=== PATIENT | female | born 1985 | race Caucasian/White ===

== ENCOUNTER 2017-01-06 18:42 | Emergency (ER) | payer OTHER ==
[2017-01-06 18:49] VITALS: TEMP 98.1; BMI 28.3
--- NOTE | 2017-01-06 19:43 | PDOC ---
History of Present Illness - History of Present Illness Initial Comments: 01/06/17 20:05 Patient is a 31 year old female with significant medical hx of vertigo who is presenting to the ED with several days of neck pain that worsened today. Patient reports having mild neck pain two days ago that worsened today after throwing her head back while laughing. The patient complains of pain that is localized to the left side of her neck that worsens when she turns her head to the left. Patient also complains of a week and a half of insomnia and multiple episodes of loose stooling. She endorses some lightheadedness as well. Denies any weakness, numbness, tingling, slurred speech, confusion, or any focal neurological deficits. Social Hx: Tobacco smoker for 13 years, currently one pack per day. Denies alcohol use or recreational drug use. /A1 <Alba Murillo - Last Filed: 01/06/17 20:15> <Abbie Diaz - Last Filed: 01/07/17 00:39> - General Chief Complaint: Pain, Acute Stated Complaint: WEAKNESS Time Seen by Provider: 01/06/17 18:59 Past History <Alba Murillo - Last Filed: 01/06/17 20:15> - Past Medical History Other medical history: none - Reproductive History (#): 2 Para: 1 Cervical CA: No Dysfunctional Uterine Bleeding: No Ectopic : No Endometrial CA: No Polycystic Ovaries: No Therapeutic (s) & number: Yes Tubal Ligation: No Spontaneous : 1 - Immunization History Immunization Up to Date: Yes - Psycho/Social/Smoking Cessation Hx Anxiety: Yes Suicidal Ideation: No Smoking History: Never smoked Have you smoked in the past 12 months: Yes Number of Cigarettes Smoked Daily: 20 Information on smoking cessation initiated: Yes 'Breaking Loose' booklet given: 01/06/17 Hx Alcohol Use: No Drug/Substance Use Hx: No <Abbie Diaz - Last Filed: 01/07/17 00:39> - Past Medical History Allergies/Adverse Reactions: Allergies Allergy/AdvReac Type Severity Reaction Status Date / Time No Known Allergies Allergy Verified 01/06/17 18:44 Home Medications: Ambulatory Orders Cyclobenzaprine HCl [Flexeril 10 mg] 10 mg PO HS PRN #7 tablet 01/06/17 Ibuprofen [Motrin -] 600 mg PO TID PRN #21 tablet 01/06/17 Review of Systems - Review of Systems Comments:: 01/06/17 20:15 CONSTITUTIONAL: Present: insomnia Absent: fever, chills, diaphoresis, generalized weakness, malaise, loss of appetite HEENT: Absent: rhinorrhea, nasal congestion, throat pain, throat swelling, difficulty swallowing, mouth swelling, ear pain, eye pain, visual changes CARDIOVASCULAR: Present: lightheadedness Absent: chest pain, syncope, palpitations, irregular heart rate, peripheral edema RESPIRATORY: Absent: cough, shortness of breath, dyspnea with exertion, orthopnea, wheezing, stridor, hemoptysis GASTROINTESTINAL: Present: loose stooling Absent: abdominal pain, abdominal distension, nausea, vomiting, constipation, melena, hematochezia GENITOURINARY: Absent: dysuria, frequency, urgency, hesitancy, hematuria, flank pain, genital pain MUSCULOSKELETAL: Present: Neck pain Absent: myalgia, arthralgia, joint swelling SKIN: Absent: rash, itching, pallor HEMATOLOGIC/IMMUNOLOGIC: Absent: easy bleeding, easy bruising, lymphadenopathy, frequent infections ENDOCRINE: Absent: unexplained weight gain, unexplained weight loss, heat intolerance, cold intolerance NEUROLOGIC: Absent: headache, focal weakness or paresthesia, dizziness, unsteady gait, seizure, mental status changes, bladder or bowel incontinence. PSYCHIATRIC: Absent: anxiety, depression, suicidal or homicidal ideation, hallucinations <Leticia Murilloa - Last Filed: 01/06/17 20:15> *Physical Exam - Vital Signs Last Vital Signs Temp Pulse Resp BP Pulse Ox 98.1 F 76 18 117/76 100 01/06/17 18:45 01/06/17 18:45 01/06/17 18:45 01/06/17 18:45 01/06/17 18:45 - Physical Exam Comments: 01/06/17 20:16 GENERAL: Well developed, well nourished. Awake and alert. No acute distress. HEENT: Normocephalic, atraumatic. PERRLA, EOMI. No conjunctival pallor. Sclera are non- icteric. Moist mucous membranes. Oropharynx is clear. NECK: Supple. Full ROM. No JVD. Carotid pulses 2+ and symmetric, without bruits. No thyromegaly. No lymphadenopathy. CARDIOVASCULAR: Regular rate and rhythm. No murmurs, rubs, or gallops. Distal pulses are 2+ and symmetric. PULMONARY: No evidence of respiratory distress. Lungs clear to auscultation bilaterally. No wheezing, rales or rhonchi. ABDOMINAL: Soft. Non-tender. Non-distended. No rebound or guarding. No organomegaly. Normoactive bowel sounds. MUSCULOSKELETAL: Left trapezius tenderness, left sided paraspinal tenderness. Normal range of motion at all joints. No bony deformities. No CVA tenderness. EXTREMITIES: No cyanosis. No clubbing. No edema. No calf tenderness. SKIN: Warm and dry. Normal capillary refill. No rashes. No jaundice. NEUROLOGICAL: Alert, awake, appropriate. Cranial nerves 2-12 intact. Normal speech. Gait is normal without ataxia. PSYCHIATRIC: Cooperative. Good eye contact. Appropriate mood and affect. <Alba Murillo - Last Filed: 01/06/17 20:15> - Vital Signs Last Vital Signs Temp Pulse Resp BP Pulse Ox 98.1 F 76 18 117/76 100 01/06/17 18:45 01/06/17 18:45 01/06/17 18:45 01/06/17 18:45 01/06/17 18:45 <Abbie Diaz - Last Filed: 01/07/17 00:39> ED Treatment Course - LABORATORY CBC & Chemistry Diagram: 01/06/17 20:00 01/06/17 20:00 <Alba Murillo - Last Filed: 01/06/17 20:15> - LABORATORY CBC & Chemistry Diagram: 01/06/17 20:00 01/06/17 20:00 <Abbie Diaz - Last Filed: 01/07/17 00:39> Medical Decision Making - Medical Decision Making 01/06/17 22:27 31 yo female p/w c/o left trapezius and paraspinal neck pain after throwing her head back while laughing.She also had miltiple c/o including insomnia,"bones cracking",1 week diarrhea. -no arm pain,no extremity tingling or numbness or weakness -negative test. -cbc,chemistries unremarkable -c spine was negative for fracture ,misalignment imp: musculoskeletal pain 01/07/17 00:36 <Abbie Diaz - Last Filed: 01/07/17 00:39> *DC/Admit/Observation/Transfer - Attestations Scribe Attestion: 01/06/17 20:17 Documentation prepared by Alba Murillo, acting as medical equipment repairer for Abbie Diaz MD. <Alba Murillo - Last Filed: 01/06/17 20:15> <Abbie Diaz - Last Filed: 01/07/17 00:39> Diagnosis at time of Disposition: Neck muscle spasm Trapezius muscle strain Qualifiers: Encounter type: initial encounter Laterality: left Qualified Code(s): S46.812A - Strain of other muscles, fascia and tendons at shoulder and upper arm level, left arm, initial encounter - Discharge Dispostion Disposition: HOME Condition at time of disposition: Stable - Prescriptions Prescriptions: Cyclobenzaprine HCl [Flexeril 10 mg] 10 mg PO HS PRN #7 tablet PRN Reason: Muscle Spasms Ibuprofen [Motrin -] 600 mg PO TID PRN #21 tablet PRN Reason: Pain - Patient Instructions Printed Discharge Instructions: DI for Cervical Muscle Strain, DI for Musculoskeletal Pain Additional Instructions: Please mill tender warm up your prescriptions at [facility] for any worsening symptoms
[2017-01-06] MEDS ORDERED: ACETAMINOPHEN 500 MG TABLET (FP) PO ONE (19:55)
[2017-01-06] MEDS ORDERED: ACETAMINOPHEN 325 MG TABLET (FP) ONE (20:01)
[2017-01-06 20:17] LABS: BASOPHIL 0.3 % (0-2.0); EOSINOPHIL 1.1 % (0-4.5); MCH 30.1 pg (25.7-33.7); MCHC 32.7 g/dl (32.0-36.0); MEAN CELL VOLUME 92.1 fl (80-96); MEAN PLT VOLUME 9.2 fl (7.5-11.1); NEUTROPHILS 75.9 % (42.8-82.8); PLATELET COUNT 203 K/MM3 (134-434); RDW 13.5 % (11.6-15.6); WHITE BLOOD COUNT 8.4 K/mm3 (4.0-10.0)
[2017-01-06 20:18] LABS: URINE APPEARANCE SLCLOUDY; URINE BILIRUBIN NEGATIVE (NEGATIVE); URINE BLOOD NEGATIVE (NEGATIVE); URINE COLOR LTYELLOW; URINE GLUCOSE (UA) NEGATIVE (NEGATIVE); URINE KETONE NEGATIVE (NEGATIVE); URINE LEUK ESTERASE NEGATIVE (NEGATIVE); URINE NITRITE NEGATIVE (NEGATIVE); URINE PROTEIN NEGATIVE (NEGATIVE); URINE UROBILINOGEN 2.0 E.U/dl E.U./dl (0.2-1.0)
[2017-01-06 20:36] LABS: ALK PHOS 68 U/L (45-117); ANION GAP 8 (8-16); BILIRUBIN,TOTAL 0.2 mg/dL (0.2-1.0); CALCIUM 8.5 mg/dL (8.5-10.1); CO2 26 mmol/L (21-32); CREATININE 0.7 mg/dL (0.55-1.02); GLUCOSE,RANDOM 76 mg/dL (74-106); SGPT/ALT 18 U/L (12-78); TOT PROT 6.8 g/dl (6.4-8.2)
[2017-01-06 20:37] LABS: SGOT/AST 21 U/L (15-37)
[2017-01-06] MEDS ORDERED: KETOROLAC TROMETHAMINE 60 MG/2 ML VIAL IM ONE (21:19)
[2017-01-06] MEDS ORDERED: IBUPROFEN 600 MG TABLET (FP) PO ONE (22:04)
[2017-01-06] MEDS ORDERED: CYCLOBENZAPRINE HCL 10 MG TABLET (FP) PO ONE (22:05)
[2017-01-06] MEDS ORDERED: METHOCARBAMOL 500 MG TABLET PO ONE (22:26)
[2017-01-06 22:39] VITALS: BP 122/68; PULSE 72
== END 2017-01-06 22:37 | disposition home or self-care (01) ==
LOC: JER 18:42
DX: S46.812A Strain of other muscles, fascia and tendons at shoulder and upper arm level, left arm, initial encounter (principal); M62.838 Other muscle spasm; X50.1XXA Overexertion from prolonged static or awkward postures, initial encounter; Y93.89 Activity, other specified; Y92.89 Other specified places as the place of occurrence of the external cause
CPT/HCPCS: 36415; 72050-TC; 80053; 81003; 84703; 85025; 99284-25

== ENCOUNTER 2017-04-18 02:24 | Emergency (ER) | payer OTHER ==
--- NOTE | 2017-04-18 04:18 | PDOC ---
Attending Attestation - HPI HPI: The patient is a 31 yo F with a past medical history of depression and anxiety who presents with dizziness and pressure in her head (non painful) that began around 1 pm s/p drinking large iced coffee. The patient states these symptoms are similar to her past episodes of anxiety. The patient also endorses mild SOB after walking up a hill. The patient denies fevers and chills. The patient denies chest pain and palpitations. The patient denies nausea, vomiting, diarrhea and abdominal pain. Social Hx: Smoker 1ppd - Medical Decision Making Documentation prepared by Lu Leahy, acting as adjunct faculty for medical terminology for Kevon Ybarra MD/DO. <Lu Leahy - Last Filed: 04/18/17 04:32> - Resident Resident Name: Larry Ornelas - ED Attending Attestation I have performed the following: I have examined & evaluated the patient, The case was reviewed & discussed with the resident, I agree w/resident's findings & plan, Exceptions are as noted - Physicial Exam PE: 04/18/17 05:22 Physical Exam General Appearance: Yes: Appropriately Dressed. No: Apparent Distress, Intoxicated HEENT: positive: EOMI, CROW, Normal ENT Inspection, Normal Voice, TMs Normal, Pharynx Normal. negative: Pale Conjunctivae, Photophobia, Scleral Icterus (R), Scleral Icterus (L) Neck: positive: Trachea midline, Normal Thyroid, Supple. negative: Tender, Rigid, Carotid bruit, Stridor, Lymphadenopathy (R), Lymphadenopathy (L), Thyromegaly Respiratory/Chest: positive: Lungs Clear, Normal Breath Sounds. negative: Chest Tender, Respiratory Distress, Accessory Muscle Use, Labored Respiration, RES, Crackles, Rales, Rhonchi, Stridor, Wheezing, Dullness Cardiovascular: positive: Regular Rhythm, Regular Rate, S1, S2. negative: Edema , JVD, Murmur, Bradycardia, Tachycardia Vascular Pulses: Dorsalis-Pedis (R): 2+, Doralis-Pedis (L): 2+ Gastrointestinal/Abdominal: positive: Normal Bowel Sounds, Flat, Soft. negative : Tender, Organomegaly, Pulsatile Mass, Increased Bowel Sounds, Decreased BS, Distended, Guarding, Rebound, Hernia, Hepatomegaly, Spleenomegaly Lymphatic: negative: Adenopathy, Tenderness Musculoskeletal: positive: Normal Inspection. negative: CVA Tenderness, Decreased Range of Motion Extremity: positive: Normal Capillary Refill, Normal Inspection, Normal Range of Motion, Pelvis Stable. negative: Tender, Pedal Edema, Swelling, Erythema Integumentary: positive: Normal Color, Dry, Warm. 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 negative: EOM Palsy, Facial Droop, Sensory Deficit <Kevon Ybarra - Last Filed: 04/18/17 05:25> Discharge Disposition <Lu Leahy - Last Filed: 04/18/17 04:32> - Discharge Dispostion Last Admission D/C Date: 08/27/10 Admit: No <Kevon Ybarra - Last Filed: 04/18/17 05:25> - Diagnosis Lightheaded - Discharge Dispostion Disposition: HOME Condition at time of disposition: Stable - Patient Instructions Printed Discharge Instructions: DI for Dizziness-Nonvertigo Additional Instructions: please follow up with your primary care from
[2017-04-18 04:29] LABS: BASOPHIL 0.4 % (0-2.0); EOSINOPHIL 0.8 % (0-4.5); MCH 30.7 pg (25.7-33.7); MCHC 32.9 g/dl (32.0-36.0); MEAN CELL VOLUME 93.2 fl (80-96); MEAN PLT VOLUME 9.2 fl (7.5-11.1); NEUTROPHILS 73.2 % (42.8-82.8); PLATELET COUNT 199 K/MM3 (134-434); RDW 13.7 % (11.6-15.6); URINE APPEARANCE CLOUDY; URINE BILIRUBIN NEGATIVE (NEGATIVE); URINE BLOOD NEGATIVE (NEGATIVE); URINE COLOR YELLOW; URINE GLUCOSE (UA) NEGATIVE (NEGATIVE); URINE KETONE NEGATIVE (NEGATIVE); URINE LEUK ESTERASE NEGATIVE (NEGATIVE); URINE NITRITE NEGATIVE (NEGATIVE); URINE PROTEIN NEGATIVE (NEGATIVE); URINE UROBILINOGEN NEGATIVE mg/dL (0.2-1.0); WHITE BLOOD COUNT 6.8 K/mm3 (4.0-10.0)
--- NOTE | 2017-04-18 04:39 | PDOC ---
History of Present Illness - General Chief Complaint: Lightheaded Stated Complaint: DIZZINESS Time Seen by Provider: 04/18/17 02:42 History Source: Patient Exam Limitations: No Limitations - History of Present Illness Initial Comments: 04/18/17 04:16 31F with likely psych history of depression/anxiety presenting with episodes of dizziness and pressure in her head (non-painful) as well as panting after going up a hill. Symptoms started at 1 pm after she drank a tall glass of iced coffee after her meal. Although she has been seen in this ed before for the same symptoms, today's symptoms are exceptional in their intensity. Patient reluctantly admits to 1 pack a day smoking of cigarettes but wishes she could stop if it wasn't for the disturbingly stressful living situation at home with her mother "and friends". The patient admits to a tumultuous psychiatric history, characterized as "father issues unresolved", where she developed a distrust of the psychiatric and psychological establishment. Patient refuses to consider psych referral or smoking cessation alcohol and drug counselor, instead relying on smoking to relieve her anxiety. Past History - Past Medical History Allergies/Adverse Reactions: Allergies Allergy/AdvReac Type Severity Reaction Status Date / Time No Known Allergies Allergy Verified 04/18/17 02:54 Home Medications: Ambulatory Orders Cyclobenzaprine HCl [Flexeril 10 mg] 10 mg PO HS PRN #7 tablet 01/06/17 Ibuprofen [Motrin -] 600 mg PO TID PRN #21 tablet 01/06/17 - Reproductive History (#): 2 Para: 1 Cervical CA: No Dysfunctional Uterine Bleeding: No Ectopic : No Endometrial CA: No Polycystic Ovaries: No Therapeutic (s) & number: Yes Tubal Ligation: No Spontaneous : 1 - Immunization History Immunization Up to Date: Yes - Psycho/Social/Smoking Cessation Hx Anxiety: Yes Suicidal Ideation: No Smoking History: Never smoked Have you smoked in the past 12 months: No Number of Cigarettes Smoked Daily: 20 Information on smoking cessation initiated: No 'Breaking Loose' booklet given: 01/06/17 Hx Alcohol Use: No Drug/Substance Use Hx: No Review of Systems - Review of Systems Constitutional: No: Chills, Diaphoresis, Fever HEENTM: No: Symptoms Reported Respiratory: Yes: SOB with Exertion Cardiac (ROS): No: Symptoms Reported ABD/GI: No: Symptoms Reported : No: Symptoms Reported Musculoskeletal: No: Symptoms Reported Integumentary: No: Symptoms Reported Neurological: No: Symptoms reported Psychiatric: Yes: Stressors, Sleep Pattern Change (Sleeps poorly especially last 4 days.) Endocrine: No: Excessive Sweating, Flushing, Intolerance to Cold, Intolerance to Heat *Physical Exam - Vital Signs Last Vital Signs Temp Pulse Resp BP Pulse Ox 98.7 F 73 12 123/64 99 04/18/17 02:54 04/18/17 02:54 04/18/17 02:54 04/18/17 02:54 04/18/17 02:54 - Physical Exam General Appearance: Yes: Nourished, Appropriately Dressed, Apparent Distress HEENT: positive: EOMI, CROW, Normal ENT Inspection Neck: positive: Trachea midline. negative: Tender Respiratory/Chest: positive: Lungs Clear, Normal Breath Sounds. negative: Chest Tender Musculoskeletal: positive: Normal Inspection. 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 CBC CMP UA, Upreg Utox: EKG:
[2017-04-18 04:48] LABS: ALBUMIN 3.8 g/dl (3.4-5.0); ANION GAP 4 (8-16); CALCIUM 8.5 mg/dL (8.5-10.1); CO2 29 mmol/L (21-32); CREATININE 0.7 mg/dL (0.55-1.02); GLUCOSE,RANDOM 98 mg/dL (74-106); SGOT/AST 8 U/L (15-37); SGPT/ALT 18 U/L (12-78)
[2017-04-18 04:50] LABS: ALK PHOS 59 U/L (45-117); BILIRUBIN,TOTAL 0.3 mg/dL (0.2-1.0); TOT PROT 6.5 g/dl (6.4-8.2); URINE MARIJUANA THC NEGATIVE ng/ml (CUTOFF=50)
[2017-04-18 04:51] VITALS: BP 123/64; PULSE 73; TEMP 98.7; BMI 29.3
== END 2017-04-18 05:36 | disposition home or self-care (01) ==
LOC: JER 02:24
DX: R42 Dizziness and giddiness (principal); F17.210 Nicotine dependence, cigarettes, uncomplicated; F41.8 Other specified anxiety disorders
CPT/HCPCS: 36415; 80053; 80307; 81003; 84703; 85025; 99281-25

== ENCOUNTER 2017-06-01 21:23 | Emergency (ER) | payer OTHER ==
[2017-06-01 21:28] VITALS: BP 110/58; PULSE 68; TEMP 98.1; BMI 27.4
[2017-06-01] MEDS ORDERED: morphine CARPU-JECT 4 MG/1 ML DISP.SYRIN IVPUSH ONE (22:12)
[2017-06-01] MEDS ORDERED: ONDANSETRON 4 MG/2 ML VIAL IVPUSH ONE (22:12)
[2017-06-01 22:13] LABS: URINE APPEARANCE CLOUDY; URINE BLOOD 3+ (NEGATIVE); URINE COLOR AMBER; URINE GLUCOSE (UA) NEGATIVE (NEGATIVE); URINE KETONE TRACE (NEGATIVE); URINE LEUK ESTERASE NEGATIVE (NEGATIVE); URINE NITRITE NEGATIVE (NEGATIVE); URINE UROBILINOGEN 4.0 E.U/dl mg/dL (0.2-1.0)
[2017-06-01 22:20] LABS: URINE PROTEIN 2+ (NEGATIVE)
[2017-06-01 22:23] LABS: URINE MUCUS MODERATE; URINE RBC 652 /hpf (0-3); URINE WBC 16 /hpf (3-5)
--- NOTE | 2017-06-01 22:23 | PDOC ---
History of Present Illness - General Chief Complaint: Injury Stated Complaint: PAIN Time Seen by Provider: 06/01/17 21:53 History Source: Patient Exam Limitations: No Limitations - History of Present Illness Initial Comments: 06/01/17 22:18 31yo Female patient with no significant past medical history presents to ED c/o left rib injury and pelvic pain s/p fall. Patient states she was changing light bulb while standing on 4 ft ladder, fell over and hit dining room table injuring her left ribs. She denies head injury, LOC, n/v/d, diff breathing, CP, Abd pain or any other complaints at this time. LNMP: Current. Patient reports 3 Doses of Tylenol 650mg OTC prior to arrival. Occurred: reports: this evening Severity: reports: moderate Pain Location: reports: other (Left ribs), pelvis Method of Injury: Yes: fall Modifying Factors: improves with: pain medication Loss of Consciousness: no loss of consciousness Associated Symptoms (Fall): trouble walking Past History - Travel Traveled outside of the country in the last 30 days: No Close contact w/someone who was outside of country & ill: No - Past Medical History Allergies/Adverse Reactions: Allergies Allergy/AdvReac Type Severity Reaction Status Date / Time No Known Allergies Allergy Verified 06/01/17 21:28 Home Medications: Ambulatory Orders Ibuprofen [Motrin -] 600 mg PO Q6H PRN #30 tablet 06/02/17 Methocarbamol [Robaxin -] 500 mg PO TID PRN #21 tablet 06/02/17 Other medical history: denies - Reproductive History (#): 2 Para: 1 Cervical CA: No Dysfunctional Uterine Bleeding: No Ectopic : No Endometrial CA: No Polycystic Ovaries: No Therapeutic (s) & number: Yes Tubal Ligation: No Spontaneous : 1 - Immunization History Immunization Up to Date: Yes - Suicide/Smoking/Psychosocial Hx Smoking History: Current every day smoker Have you smoked in the past 12 months: No Number of Cigarettes Smoked Daily: 20 Information on smoking cessation initiated: No 'Breaking Loose' booklet given: 01/06/17 Hx Alcohol Use: No Drug/Substance Use Hx: No Trauma Specific PMHX - Complaint Specific PMHX Arthritis: No Back Injury: No Neck Injury: No Hx Sacro Iliac Joint Dysfunction: No Review of Systems - Review of Systems Able to Perform ROS?: Yes Is the patient limited Greenlandic proficient: No Musculoskeletal: Yes: Muscle Pain, Other (Rib Pain) All Other Systems: Reviewed and Negative *Physical Exam - Vital Signs Last Vital Signs Temp Pulse Resp BP Pulse Ox 98.1 F 68 18 110/58 100 06/01/17 21:24 06/01/17 21:24 06/01/17 21:24 06/01/17 21:24 06/01/17 21:24 - Physical Exam General Appearance: Yes: Nourished, Appropriately Dressed, Apparent Distress, Moderate Distress. No: Mild Distress, Severe Distress Neck: positive: Trachea midline, Normal Thyroid, Supple. negative: Decreased range of motion, Lymphadenopathy (R), Lymphadenopathy (L) Respiratory/Chest: positive: Lungs Clear, Normal Breath Sounds. negative: Chest Tender, Respiratory Distress, Accessory Muscle Use, Labored Respiration, Rapid RR, Paradoxal Breathing, Stridor Cardiovascular: positive: Regular Rhythm, Regular Rate Gastrointestinal/Abdominal: positive: Normal Bowel Sounds, Soft. negative: Distended, Guarding, Rebound, Tenderness Musculoskeletal: positive: Normal Inspection. negative: CVA Tenderness Extremity: positive: Normal Capillary Refill, Normal Inspection, Normal Range of Motion. 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, Fully Oriented, Alert, Normal Mood/ Affect, Normal Response, Motor Strength 5/5 ED Treatment Course - LABORATORY CBC & Chemistry Diagram: 06/01/17 22:44 06/01/17 22:44 - RADIOLOGY Radiology Studies Ordered: Category Date Time Status ABDOMEN & PELVIS CT W/O CONTR [CT] Stat CT Scan 06/01/17 22:[address] WITHOUT CONTRAST [CT] Stat CT Scan 06/01/17 22:12 Ordered *DC/Admit/Observation/Transfer Diagnosis at time of Disposition: Contusion of rib on left side Qualifiers: Encounter type: initial encounter Qualified Code(s): S20.212A - Contusion of left front wall of thorax, initial encounter - Discharge Dispostion Disposition: HOME Condition at time of disposition: Improved Admit: No - Prescriptions Prescriptions: Ibuprofen [Motrin -] 600 mg PO Q6H PRN #30 tablet PRN Reason: Mild Pain Methocarbamol [Robaxin -] 500 mg PO TID PRN #21 tablet PRN Reason: Rib Pain - Referrals Referrals: Anderson Colse MD [Staff Physician] - - Patient Instructions Printed Discharge Instructions: DI for Rib Contusion Additional Instructions: Follow up with Dr. Coles (Orthopedic) next week. Call to schedule appointment if symptoms persist. Motrin or Tylenol for pain as needed. Robaxin for muscle relaxer. Apply warm compress to affected area as needed. Return if any concerns for further evaluation. Print Language: CROATIAN
[2017-06-01] MEDS ORDERED: morphine CARPU-JECT 4 MG/1 ML DISP.SYRIN ONE (22:46)
[2017-06-01] MEDS ORDERED: ONDANSETRON 4 MG/2 ML VIAL ONE (22:47)
[2017-06-01 22:55] LABS: BASOPHIL 0.5 % (0-2.0); EOSINOPHIL 1.6 % (0-4.5); MCH 31.2 pg (25.7-33.7); MCHC 33.5 g/dl (32.0-36.0); MEAN CELL VOLUME 93.1 fl (80-96); MEAN PLT VOLUME 9.5 fl (7.5-11.1); NEUTROPHILS 67.9 % (42.8-82.8); PLATELET COUNT 196 K/MM3 (134-434); RDW 13.5 % (11.6-15.6)
[2017-06-01 23:21] LABS: ALK PHOS 64 U/L (45-117); ANION GAP 6 (8-16); BILIRUBIN,TOTAL 0.5 mg/dL (0.2-1.0); CALCIUM 8.2 mg/dL (8.5-10.1); CO2 30 mmol/L (21-32); CREATININE 0.8 mg/dL (0.55-1.02); GLUCOSE,RANDOM 84 mg/dL (74-106); SGOT/AST 9 U/L (15-37); SGPT/ALT 17 U/L (12-78); TOT PROT 6.3 g/dl (6.4-8.2)
== END 2017-06-02 00:42 | disposition home or self-care (01) ==
LOC: JERFT 21:23 → JER 21:23
PROC: 3E033NZ Introduction of Analgesics, Hypnotics, Sedatives into Peripheral Vein, Percutaneous Approach (ICD-10-PCS; principal; 2017-06-01)
PROC: 3E033GC Introduction of Other Therapeutic Substance into Peripheral Vein, Percutaneous Approach (ICD-10-PCS; 2017-06-01)
DX: S20.212A Contusion of left front wall of thorax, initial encounter (principal); W11.XXXA Fall on and from ladder, initial encounter; Y93.E9 Activity, other interior property and clothing maintenance; Y92.011 Dining room of single-family (private) house as the place of occurrence of the external cause; Y99.8 Other external cause status; W01.190A Fall on same level from slipping, tripping and stumbling with subsequent striking against furniture, initial encounter
CPT/HCPCS: 36415; 71250-TC; 74176-TC; 80053; 81003; 81015; 84703; 85025; 96374; 96375; 99282-25

== ENCOUNTER 2018-10-23 09:22 | Emergency (ER) | payer OTHER ==
[2018-10-23 09:29] VITALS: BP 113/77; PULSE 72; TEMP 98; BMI 33.3
[2018-10-23] MEDS ORDERED: SODIUM CHLORIDE 1,000 ML IV STA (10:07)
[2018-10-23] MEDS ORDERED: ACETAMINOPHEN 325 MG TABLET (FP) PO ONE (10:07)
[2018-10-23] MEDS ORDERED: FAMOTIDINE 20 MG/50 ML IVPB 20 MG/50 ML MG IVPB ONE (10:07)
--- NOTE | 2018-10-23 10:08 | PDOC ---
History of Present Illness - History of Present Illness Initial Comments: 10/23/18 11:45 HPI The patient is a 33 year old female, with a significant past medical history of anxiety and depression, who presents to the emergency department with complaints of headache/burning chest and abdominal pain, which have been present x long time. She states she was prompted to come to the ED because she could not tolerate the burning sensation to her face and scalp today, and causing her poor sleep. She states this burning sensation has occurred multiple times, intermittently, for the past 2 years, however, has been more bothersome for the past 2-3 months. She localizes the burning sensation to her cheeks, forehead, ears, and scalp. She states the burning wraps around like a crown. She reports associated chest pains and dizziness which comes and goes and varies in location. She states she sometimes feels the pain to her left, middle and right anterior chest. She denies any chest pain or dizziness currently. The patient states she has been experiencing the intermittent CP and dizziness for a few years, however, states they have been more frequent over the past 7 months. Secondarily, she reports 4 years of intermittent watery stools. She reports her LMP finished last week. Has not taken any medications for her symptoms at home. She states she does not have a PCP and has not seens a physician in a while. The patient denies recent sick contacts or recent travels. She denies any particular stressors in her life. The patient denies shortness of breath. The patient denies fever, chills, nausea, vomit, and constipation. The patient denies dysuria, frequency, urgency and hematuria. Allergies: NKDA Past surgical history: Social history: 1ppd tobacco smoker ROS: General/Constitutional: no fevers or chills. No weakness/sweats. HEENT: (+) headache and dizziness. No congestion. No visual/hearing disturbances. CVS: (+) cp. No syncope. Resp: no sob. No cough. Gastrointestinal: (+) diffuse abdominal discomfort, diarrhea. No nausea or vomiting. Genitourinary: no urinary sx, hematuria. MUSCULOSKELETAL: No joint pain and swelling. No neck or back pain. SKIN: (+) face and scalp burning. no redness or skin changes, no discharge, no rash. No wounds. Hematologic: no easy bruising/bleeding. HEMATOLOGIC/LYMPHATIC: No anemia, easy bruising/bleeding, or history of blood clots. NEUROLOGIC: (+) headache, dizziness, No LOC or altered mental status. No weakness, numbness or tingling. Allergic/Immunologic: no allergies All other systems reviewed and negative, or as documented in HPI. Physical exam: General: Well appearing, awake and alert, NAD. HEENT: NCAT, PERRL, EOMI, clear conjunctiva, anicteric, moist mucous membranes , clear oropharynx, no oral lesions.. Neck: neck supple, FROM Resp: CTAB, normal and even respirations, no respiratory distress CVS: RRR, no murmurs, 2+ peripheral pulses throughout, no peripheral edema Abdomen: Obese. No focal tenderness. soft, nondistended, no rebound or guarding. No CVAT. Back: nontender, normal inspection and ROM MSK: no edema, CARLIN x4, ROM intact. No clubbing or cyanosis. normal bulk and tone. Extremities: no calf tenderness Neuro: alert, oriented appropriately; no focal neurologic deficits Skin: warm and well perfused, cap refill <2 sec, normal color; no rash <Susana Blanchard - Last Filed: 10/23/18 13:29> - General History Source: Patient Exam Limitations: No Limitations <Lilly Ramos - Last Filed: 10/23/18 13:51> - General Chief Complaint: Chest Pain Stated Complaint: BODY PAIN Time Seen by Provider: 10/23/18 09:54 Past History <Susana Blanchard - Last Filed: 10/23/18 13:29> - Past Medical History COPD: No - Reproductive History (#): 2 Para: 1 Cervical CA: No Dysfunctional Uterine Bleeding: No Ectopic : No Endometrial CA: No Polycystic Ovaries: No Therapeutic (s) & number: Yes Tubal Ligation: No Spontaneous : 1 - Immunization History Immunization Up to Date: Yes - Suicide/Smoking/Psychosocial Hx Smoking History: Current every day smoker Have you smoked in the past 12 months: No Number of Cigarettes Smoked Daily: 20 Information on smoking cessation initiated: No 'Breaking Loose' booklet given: 01/06/17 Hx Alcohol Use: No Drug/Substance Use Hx: No <Lilly Ramos - Last Filed: 10/23/18 13:51> - Past Medical History Allergies/Adverse Reactions: Allergies Allergy/AdvReac Type Severity Reaction Status Date / Time No Known Allergies Allergy Verified 10/23/18 09:25 Home Medications: Ambulatory Orders NK [No Known Home Medication] 10/23/18 *Physical Exam - Vital Signs Last Vital Signs Temp Pulse Resp BP Pulse Ox 98.0 F 72 18 113/77 100 10/23/18 09:25 10/23/18 09:25 10/23/18 09:25 10/23/18 09:25 10/23/18 09:25 <Susana Blanchard - Last Filed: 10/23/18 13:29> - Vital Signs Last Vital Signs Temp Pulse Resp BP Pulse Ox 98.0 F 72 18 113/77 100 10/23/18 09:25 10/23/18 09:25 10/23/18 09:25 10/23/18 09:25 10/23/18 09:25 <Lilly Ramos - Last Filed: 10/23/18 13:51> Moderate Sedation - Procedure Monitoring Vital Signs: Procedure Monitoring Vital Signs Temperature 98.0 F 10/23/18 09:25 Pulse Rate 72 10/23/18 09:25 Respiratory Rate 18 10/23/18 09:25 Blood Pressure 113/77 10/23/18 09:25 O2 Sat by Pulse Oximetry (%) 100 10/23/18 09:25 <Susana Blanchard - Last Filed: 10/23/18 13:29> - Procedure Monitoring Vital Signs: Procedure Monitoring Vital Signs Temperature 98.0 F 10/23/18 09:25 Pulse Rate 72 10/23/18 09:25 Respiratory Rate 18 10/23/18 09:25 Blood Pressure 113/77 10/23/18 09:25 O2 Sat by Pulse Oximetry (%) 100 10/23/18 09:25 <Lilly Ramos - Last Filed: 10/23/18 13:51> Heart Score/ECG Review - ECG Impressions Normal ECG: Yes Comment:: 10/23/18 13:50 EKG normal sinus rhythm, no interval abnormalities, narrow QRS, ST and T wave segments and morphology normal. <Lilly Ramos - Last Filed: 10/23/18 13:51> ED Treatment Course - LABORATORY CBC & Chemistry Diagram: 10/23/18 10:35 10/23/18 10:26 - ADDITIONAL ORDERS Additional order review: Laboratory Results 10/23/18 10/23/18 10:35 10:26 Sodium 138 Potassium 4.3 Chloride 106 Carbon Dioxide 26 Anion Gap 6 L BUN 18 Creatinine 0.9 Creat Clearance w eGFR > 60 Random Glucose 97 Calcium 8.6 Total Bilirubin 0.3 AST 8 L ALT 19 Alkaline Phosphatase 60 Total Protein 7.0 Albumin 4.1 Lipase 96 Serum , Qual Negative 10/23/18 10:35 RBC 4.48 MCV 92.2 MCHC 34.6 RDW 13.4 MPV 8.9 Neutrophils % 75.7 Lymphocytes % 17.9 D Monocytes % 4.7 Eosinophils % 1.3 Basophils % 0.4 - RADIOLOGY Radiograph Interpretation: EXAM#: TYPE/EXAM: RESULT: [id number] CT/HEAD CT WITHOUT CONTRAST Headache. Rule out mass CT scan of the brain without intravenous contrast. No prior is available for comparison The ventricles and basal cisterns appear unremarkable. No mass lesion, gross acute infarct or intracranial hemorrhage are identified. Visualized paranasal sinuses and mastoid air cells are well-aerated. The calvarium is intact. Impression: No evidence of a focal intracranial lesion or hemorrhage seen. Correlate clinically to determine further evaluation and follow-up Reported By: Barry Gallardo MD 10/23/18 7668 - Medications Given in the ED: ED Medications Discontinued Medications Generic Name Dose Route Start Last Admin Trade Name Freq PRN Reason Stop Dose Admin Acetaminophen 975 mg 10/23/18 10:07 10/23/18 10:48 Tylenol - PO 10/23/18 10:08 975 mg ONCE ONE Administration Famotidine/Sodium Chloride 20 mg in 50 mls @ 100 mls/hr 10/23/18 10:07 10:48 Pepcid 20 Mg Premixed Ivpb - IVPB 10/23/18 10:36 Not Given ONCE ONE Sodium Chloride 1,000 mls @ 1,000 mls/hr 10/23/18 10:07 10/23/18 10:48 Normal Saline - IV 10/23/18 11:06 1,000 mls/hr ASDIR STA Administration Metoclopramide HCl 10 mg 10/23/18 10:48 10/23/18 10:56 Reglan Injection - IVPUSH 10/23/18 10:49 10 mg ONCE ONE Administration <Susana Blanchard - Last Filed: 10/23/18 13:29> - LABORATORY CBC & Chemistry Diagram: 10/23/18 10:35 10/23/18 10:26 <Lilly Ramos - Last Filed: 10/23/18 13:51> Medical Decision Making - Medical Decision Making 10/23/18 10:49 I, Lilly Ramos MD, attest that this document has been prepared under my direction and personally reviewed by me in its entirety. I further attest, that it accurately reflects all work, treatment, procedures and medical decision -making performed by me. See HPI for details Vital signs reviewed, wnl. ddx. migraine, tension headache, [employer] mass, dehydration, metabolic/electrolyte derangements. pancreatitis, hepatitis, arrhythmia; doubt cardiac. doubt infectious. no meningeal signs, no neuro deficits, mostly chronic sx and workup as below. Prior notes reviewed, including admissions, discharges and consultations. laboratory results and imaging reviewed, basic labs and lytes wnl, normal CXR_no acute pathology, no effusion, no infiltrate. EKG normal sinus rhythm, no interval abnormalities, narrow QRS, ST and T wave segments and morphology normal. nonischemic. CT head neg for acute pathology or mass. ED course: IVF, tylenol/reglan for headache; pepcid for abdominal discomfort, but on reassessment, no focal tenderness, no rebound or guarding ambulatory, no focal neuro deficits, feels better. labs and imaging wnl, reviewed wiht pt. Dispo: Pt informed of my clinical impression, treatment recommendations and disposition plan. All questions answered to patient's satisfaction and expressed understanding and comfort with this. Reasons for returning to the ED sooner discussed with the patient otherwise, follow up with primary care physician. At the time of discharge, the patient is alert, clinically improved, tolerating po and verbalizes understanding of instructions. Patient does not suffer from an acute life-threatening medical condition at this time she is safe for outpatient follow-up. - pcp referrals given and appt made. also neuro eval for her recurrent headache 10/23/18 13:47 10/23/18 13:50 10/23/18 13:50 <Lilly Ramos - Last Filed: 10/23/18 13:51> *DC/Admit/Observation/Transfer - Attestations Scribe Attestion: 10/23/18 11:46 Documentation prepared by Susana Blanchard, acting as medical laboratory technician for Lilly Ramos MD <Susana Blanchard - Last Filed: 10/23/18 13:29> - Discharge Dispostion Decision to Admit order: No <RachelLilly Longo - Last Filed: 10/23/18 13:51> Diagnosis at time of Disposition: Headache - Discharge Dispostion Disposition: HOME Condition at time of disposition: Improved - Referrals Referrals: Jet Leal MD [Staff Physician] - Arlene Luther MD [Provisional Medical Staff] - [facility] [place] [facility] [place] [Provider Group] [facility] [Provider Group] Mihir Justin MD [Staff Physician] - - Patient Instructions Printed Discharge Instructions: DI for Abdominal Pain-Adult, DI for Headache Additional Instructions: 1) Please follow-up with your primary care doctor in the next 1-2 days. Please call tomorrow for an appointment. If you cannot follow-up with your primary care doctor please return to the ED for any urgent issues. 2) You were given a copy of the tests performed today. Please bring the results with you and review them with your primary care doctor. Your laboratory / imaging results were normal, your CT head is also normal. 3) If you have any worsening of symptoms or any other concerns please return to the ED immediately. Return if worsening symptoms including fevers, headache, vomiting, visual or hearing disturbances, abdominal pain, chest pain, shortness of breath, syncope, dehydration, inability to take things by mouth/vomiting, altered mental status, or worsening concerning symptoms. 4) Please continue taking your home medications as directed. your medications on discharge include_ . side effects may include upset stomach, abdominal pain, vomiting, or diarrhea. do not drink alcohol with your medications. you are to follow up with primary doctor provided and neurologist.
[2018-10-23] MEDS ORDERED: ACETAMINOPHEN 325 MG TABLET (FP) ONE (10:41)
[2018-10-23] MEDS ORDERED: FAMOTIDINE 20 MG/50 ML IVPB 0 MG/0 ML MG IVPB ONE (10:42)
[2018-10-23] MEDS ORDERED: METOCLOPRAMIDE HCL INJECTION 10 MG/2 ML VIAL IVPUSH ONE (10:48)
[2018-10-23] MEDS ORDERED: METOCLOPRAMIDE HCL INJECTION 10 MG/2 ML VIAL ONE (10:54)
[2018-10-23 11:02] LABS: BASO % 0.4 % (0-2.0); EOS % 1.3 % (0-4.5); HEMATOCRIT 41.4 % (32.4-45.2); HEMOGLOBIN 14.3 GM/dL (10.7-15.3); LYMPH % 17.9 % (8-40); MCH 31.9 pg (25.7-33.7); MCHC 34.6 g/dl (32.0-36.0); MEAN CELL VOLUME 92.2 fl (80-96); MEAN PLT VOLUME 8.9 fl (7.5-11.1); MONO % 4.7 % (3.8-10.2); NEUT % 75.7 % (42.8-82.8); PLATELET COUNT 216 K/MM3 (134-434); RBC 4.48 M/mm3 (3.60-5.2); RDW 13.4 % (11.6-15.6); WHITE BLOOD COUNT 5.2 K/mm3 (4.0-10.0)
[2018-10-23 11:08] LABS: ALBUMIN 4.1 g/dl (3.4-5.0); ALK PHOS 60 U/L (45-117); ANION GAP 6 MMOL/L (8-16); BILIRUBIN,TOTAL 0.3 mg/dL (0.2-1); BLOOD UREA NITROGEN 18 mg/dL (7-18); CALCIUM 8.6 mg/dL (8.5-10.1); CHLORIDE 106 mmol/L (98-107); CO2 26 mmol/L (21-32); CREATININE 0.9 mg/dL (0.55-1.3); GLUCOSE,RANDOM 97 mg/dL (74-106); LIPASE 96 U/L (73-393); POTASSIUM 4.3 mmol/L (3.5-5.1); SGOT/AST 8 U/L (15-37); SGPT/ALT 19 U/L (13-61); SODIUM 138 mmol/L (136-145)
[2018-10-23 13:21] LABS: URINE APPEARANCE SLCLOUDY; URINE BILIRUBIN NEGATIVE (<2.0 mg/dL); URINE COLOR YELLOW; URINE GLUCOSE (UA) NEGATIVE (NEGATIVE); URINE KETONE NEGATIVE (NEGATIVE); URINE LEUK ESTERASE TRACE (NEGATIVE); URINE NITRITE NEGATIVE (NEGATIVE); URINE PROTEIN NEGATIVE (NEGATIVE); URINE UROBILINOGEN NEGATIVE mg/dL (0.2-1.0)
[2018-10-23 14:05] LABS: EPI CELLS MANY /HPF (FEW); URINE MUCUS RARE
--- NOTE | 2018-10-23 15:40 | EKG ---
Test Reason : Blood Pressure : / mmHG Vent. Rate : 065 BPM Atrial Rate : 065 BPM P-R Int : 144 ms QRS Dur : 094 ms QT Int : 404 ms P-R-T Axes : 068 079 054 degrees QTc Int : 420 ms NORMAL SINUS RHYTHM WITH SINUS ARRHYTHMIA POSSIBLE LEFT ATRIAL ENLARGEMENT BORDERLINE ECG WHEN COMPARED WITH ECG OF 28-AUG-2016 09:47, NO SIGNIFICANT CHANGE WAS FOUND Confirmed by RODNEY HICKMAN MD ([id number]) on 10/23/2018 3:40:00 PM Referred By: Confirmed By:RODNEY HICKMAN MD
== END 2018-10-23 13:54 | disposition home or self-care (01) ==
LOC: JER 09:22
PROC: 3E0337Z Introduction of Electrolytic and Water Balance Substance into Peripheral Vein, Percutaneous Approach (ICD-10-PCS; principal; 2018-10-23)
PROC: 3E033GC Introduction of Other Therapeutic Substance into Peripheral Vein, Percutaneous Approach (ICD-10-PCS; 2018-10-23)
DX: R51 Headache (principal); F41.8 Other specified anxiety disorders
CPT/HCPCS: 36415; 70450-TC; 71046-TC-FY; 80053; 81003; 81015; 83690; 84703; 85025; 93005; 93010; 99282-25; J7030

== ENCOUNTER 2024-03-02 15:21 | Emergency (ER) | payer OTHER ==
[2024-03-02 15:51] VITALS: BP 114/69; PULSE 98; RESP 16; TEMP 98.7; BMI 26.6
[2024-03-02] MEDS ORDERED: IBUPROFEN 400 MG TABLET (FP) PO ONE (16:29)
[2024-03-02] MEDS: IBUPROFEN 400 MG TABLET (FP) PO ONE (16:31)
== END 2024-03-02 22:00 | disposition home or self-care (01) ==
LOC: JERFT 15:21
DX: S86.111A Strain of other muscle(s) and tendon(s) of posterior muscle group at lower leg level, right leg, initial encounter (principal); X50.1XXA Overexertion from prolonged static or awkward postures, initial encounter; Y93.41 Activity, dancing
CPT/HCPCS: 76882-TC-RT-FY; 99284-25